=== PATIENT | female | born 1980 | race Two or more races ===

== ENCOUNTER 2025-06-21 17:33 | Emergency (ER) | payer MEDICAID, SELFPAY ==
[2025-06-21 17:42] VITALS: BP 115/87; PULSE 90; RESP 17; TEMP 37.1; O2SAT 97; BMI 36.7
--- NOTE | 2025-06-21 17:47 | XR_ITS ---
Examination: CT abdomen and pelvis without contrast. Coronal 3-D reconstructions. Sagittal 2-D reconstructions. Date and time of exam:June 21, 2025 1913 hrs. Indications: Onset right-sided flank pain today CTDI: vol (mGy): 13.2 DLP: (mGycm): 7 37 Technique: Axial images of the abdomen have been obtained, 3 mm slice thickness Intravenous contrast material has not been administered. Low dose protocols were performed. One or more of the following dose reduction techniques were used; automated exposure control, adjustment of the mA and/or KV according to patient size, use of iterative reconstruction technique. Findings: No focal liver or splenic lesions Absent gallbladder No pancreatic or adrenal mass Absent left kidney, hypertrophied right kidney, 1 mm calculus lower pole right kidney No hydronephrosis or ureteral calculi. 10 mm fat-containing umbilical hernia. Normal appendix No bowel obstruction No diverticulitis No pelvic mass No bladder mass or bladder calculi Impression: Absent left kidney Hypertrophy right kidney, 1 mm nonobstructing calculus lower pole right kidney Normal appendix No bladder mass or bladder calculi
--- NOTE | 2025-06-21 17:47 | PD.EDRME ---
Rapid Medical Screening Exam RME Arrival date/time: 06/21/25 17:33 44-year-old female with no known medical history presents to the emergency room with a chief complaint of right sided flank pain and dysuria x 3 days I have greeted and performed a focused initial assessment of this patient. A comprehensive ED assessment and evaluation of the patient, analysis of all test results, and completion of the medical decision making process will be conducted by additional ED providers. Chief Complaint: Back Pain/Injury Vital signs: Vital Signs Temperature 98.8 F 06/21/25 17:42 Pulse Rate 90 06/21/25 17:42 Respiratory Rate 17 06/21/25 17:42 Blood Pressure 115/87 H 06/21/25 17:42 Pulse Oximetry (%) 97 06/21/25 17:42 Oxygen Delivery Method Room Air 06/21/25 17:42 Vital signs reviewed by provider: Yes
[2025-06-21] MEDS: ACETAMINOPHEN 500 MG TABLET 1000 MG PO (17:56)
[2025-06-21 18:03] LABS: Basophils # (Auto) 0.1 Thou/mm3 (0.0-0.2); Basophils % (Auto) 1 % (0-2.5); Eosinophils # (Auto) 0.1 Thou/mm3 (0.0-0.5); Eosinophils % (Auto) 1 % (0-10); Hematocrit 37.9 % (36.0-46.0); Hemoglobin 12.3 g/dL (12.0-16.0); Immature Granulocytes Auto 0.04 Thou/mm3 (0.00-0.00); Lymphocytes # (Auto) 2.6 Thou/mm3 (1.0-4.8); Lymphocytes % (Auto) 26 % (10-50); Mean Corpuscular HGB Conc 32.5 g/dl (31.0-37.0); Mean Corpuscular Hemoglobin 26.8 pg (25.0-35.0); Mean Corpuscular Volume 83 fL (80-100); Monocytes # (Auto) 0.5 Thou/mm3 (0.0-0.8); Monocytes % (Auto) 5 % (0-12); Neutrophils # (Auto) 6.8 Thou/mm3 (1.8-7.7); Neutrophils % (Auto) 67 % (37-80); Nucleated Red Blood Cell # 0.00 Thou/mm3 (0.00-0.00); Nucleated Red Blood Cell % 0 /100 WBC (0); Platelet Count 476 Thou/mm3 (140-440); RDW Standard Deviation 40.7 fL (36.4-46.3); Red Blood Count 4.59 Miln/mm3 (4.00-5.20); White Blood Count 10.1 Thou/mm3 (3.6-11.0)
[2025-06-21 18:19] LABS: Alanine Aminotransferase 19 U/L (10-49); Albumin, Serum 4.5 gm/dL (3.5-5.0); Albumin/Globulin Ratio 1.7 (1.2-2.2); Alkaline Phosphatase 83 U/L (46-116); Anion Gap 9 (7-16); Aspartate Amino Transferase 21 U/L (0-34); BUN/Creatinine Ratio 14 Ratio (12-20); Bilirubin,Total 0.3 mg/dL (0.3-1.2); Blood Urea Nitrogen 11 mg/dL (9-23); Calcium 10.1 mg/dL (8.3-10.6); Calcium (Corrected) 10.1 mg/dL (8.5-10.1); Carbon Dioxide 27.1 mMol/L (20.0-31.0); Chloride 104 mMol/L (98-107); Creatinine (Component) 0.8 mg/dL (0.6-1.3); Estimated Creatinine Clearance 99.4 mL/min (>60); Globulin 2.6 gm/dL (2.3-3.5); Glucose 124 mg/dL (74-106); Osmolality,Calculated 279 (275-295); Potassium 4.0 mMol/L (3.4-5.1); Sodium 140 mMol/L (136-145); Total Protein 7.1 gm/dL (5.7-8.2); eGFR > 60 See Note
--- NOTE | 2025-06-21 18:22 | EDNOTE_ITS ---
ED Back Injury Pain RME/HPI General Chief Complaint: Back Pain/Injury Stated Complaint: R SHOULDER AND R FLANK PAIN Time Seen by Provider: 06/21/25 18:18 Arrival date/time: 06/21/25 17:33 RME / HPI RME / HPI Narrative: 06/21/25 17:33 44-year-old female with no known medical history presents to the emergency room with a chief complaint of right sided flank pain and dysuria x 3 days I have greeted and performed a focused initial assessment of this patient. A comprehensive ED assessment and evaluation of the patient, analysis of all test results, and completion of the medical decision making process will be conducted by additional ED providers. ------- See [facility] for Dr. Johnson's HPI documentation. Related Data Home Medications ?Medication ?Instructions ?Recorded ?Confirmed sucralfate 1 gram tablet 1 g PO BID 07/07/19 05/05/20 Previous Rx's ?Medication ?Instructions ?Recorded phenazopyridine 95 mg tablet (Azo 95 mg PO TID PRN antwon n 6 doses #14 05/05/20 Urinary Pain Relief) tabs acetaminophen 500 mg tablet 1,000 mg (2 x 500 mg) PO Q ID PRN 02/19/21 (Tylenol Extra Strength) fever or pain #30 tabs meclizine 25 mg tablet 25 mg PO QDAY PRN motion sic kness 04/22/21 #7 tabs ofloxacin 0.3 % ear drops 10 drp otic (ear) BID #5 mL 04/22/21 meclizine 25 mg tablet 25 mg PO BID PRN dizziness # 14 tabs 08/13/22 tramadol 50 mg tablet 50 mg PO TID PRN pain #20 ta bs 12/07/22 hydrocodone 5 mg-acetaminophen 325 1 tab PO Q8H PRN pa in #7 tabs 05/17/23 mg tablet tamsulosin 0.4 mg capsule 0.4 mg PO QDAY #7 caps 05/17 hydrocodone 5 mg-acetaminophen 325 1 tab PO Q8H PRN pa in #7 tabs 04/06/24 mg tablet baclofen 10 mg tablet 10 mg PO BID #20 tabs ondansetron 4 mg disintegrating 4 mg PO Q8H PRN nausea and 06/10/24 tablet vomiting #10 tabs acetaminophen 300 mg-codeine 30 mg 2 tab PO Q8H PRN pa in #20 tabs 06/21/25 tablet ondansetron 4 mg disintegrating 4 mg PO TID PRN nausea and 06/21/25 tablet vomiting 30 days #10 tabs Allergies Allergy/AdvReac Type Severity Reaction Status Date / Time Gadolinium-Containing Allergy Severe Rash Verified 06/21/25 17:36 Contrast Medi ibuprofen (From Motrin) Allergy Severe Rash Verified 06/21/25 17:36 Iodinated Contrast Media Allergy Severe Rash Verified 06/21/25 17:36 Review of Systems Review of Systems Systems Reviewed: All systems reviewed, normal except as documented Past Medical History Past Medical History CARDIAC: Negative Congestive Heart Failure RESPIRATORY: Negative Chronic Obstructive Pulmonary Disease (COPD) GASTROINTESTINAL: Positive Gall Bladder Disease and Gastroesophageal Reflux Disease GENITOURINARY: Positive Genitourinary Disorders (one kidney) and Kidney Stones; Negative Renal Disease ENDOCRINE: Negative Diabetes Mellitus Type 1 or Diabetes Mellitus Type 2 Surgical History SURGICAL: Positive Nephrectomy and Section Social History SMOKING STATUS: Never smoker ED Exam Narrative Physical exam: See [facility] for Dr. Johnson's physical exam documentation. Course Quality Measures none Orders Category Date Time Status Straight [In and Out Catheter] X1 Care 06/21/25 18:28 Active sling [Splint / Immobilizer] STAT Care 06/21/25 21:[address] abdomen pelvis wo con Stat Exams 06/21/25 17:47 Completed XR shoulder RT min 2V Stat Exams 06/21/25 18:26 Completed CBC Stat Lab 06/21/25 17:55 Completed CMP [Comprehensive Metabolic Panel] Stat Lab 06/21/25 17:55 Completed HCG,Qualitative Serum Stat Lab 06/21/25 17:55 Completed Magnesium Stat Lab 06/21/25 17:55 Completed UA, C/S IF [Urinalysis, C/S if Indicated] Stat Lab 06/21/25 19:31 Completed Acetaminophen Tab [Tylenol ES Tab] Med 06/21/25 17:47 Discontinued 1,000 mg PO X1 ONE traMADol HCL [Ultram] Med 06/21/25 21:08 Discontinued 100 mg PO X1 ONE Vital Signs Vital signs: Vital Signs Temperature 98.8 F 06/21/25 17:42 Pulse Rate 90 06/21/25 17:42 Respiratory Rate 17 06/21/25 17:42 Blood Pressure 115/87 H 06/21/25 17:42 Pulse Oximetry (%) 97 06/21/25 17:42 Oxygen Delivery Method Room Air 06/21/25 17:42 Back Pain / Injury MDM Narrative MDM Narrative:: This section includes all my notes and documentations, including HPI, PE, and ED course. Gume Johnson MD HPI: 44yo female with history of left nephrectomy here with right flank and right shoulder pain for several days. With nausea. No other complaints reported. ROS: All negative except as documented in HPI. Physical Exam: General: Alert and oriented. No acute distress when remaining still. Eyes: Conjunctivae and lids clear. ENT: No nasal congestion. Neck: Supple. Heart: RRR. Lungs: No respiratory distress. Good air movement. No rhonchi, wheezing, rales. Abdomen: Soft and nontender. Normal bowel sounds. No distension. No rebound or guarding. Back: No CVA tenderness. Skin: Warm and dry. Neuro: Alert and oriented X 3. Right shoulder: Equivocal tenderness. Slightly limited range of motion due to pain. I reviewed all diagnostic test results. My interpretation of the right shoulder x-ray is tendinitis. My review of the CT abdomen pelvis report is NAD. Blood tests and urine tests are unremarkable. At this point, diagnoses include: Right shoulder tendinitis Abdominal wall pain Treatment here from me included: Tramadol Recommended supportive care. Based on my best medical judgment, made decision no further evaluation or treatment indicated at this time. Patient understands and agrees to the discharge instructions customized and printed, see below. Discharge Instructions from Dr. Johnson printed for you: 1. After extensive evaluation, there is no emergency. 2. Your diagnoses include right shoulder tendinitis and abdominal wall pain. See attached handouts. 3. Wear right arm sling for 5 days then as needed. 4. Apply ice or heat if helpful. 5. Tylenol with codeine for severe pain. 6. See a private doctor outside the ER on 06/24/2025 for recheck and further care. Ask to review all test results and official radiology reports, to make sure you receive all necessary follow-ups and monitoring. Ask for help with more care and tests not available here in the ER. Including right shoulder MRI, to make sure there is no condition needing surgery. To make sure there is no serious intra-abdominal condition, ask for help with more investigation not available here in the ER. Such as EGD or scoping the stomach, colonoscopy or scoping the colon, and referral to see database tester. 7. Seek immediate medical care with worsening or with any concerns. Gume Johnson MD Patient data External records reviewed:: [facility] previous records (Per chart review, patient was seen here on 06/10/24 for UTI.) Clinical information provided by:: patient Social determinants that could affect healthcare access:: none Patient has the following chronic illnesses:: left nephrectomy How is presenting disease/condition affected by chronic disease/condition?: uneffected by Evaluation data The following diagnostics were reviewed and interpreted by me:: lab results and radiology exam(s) Lab and/or radiology exams considered but not ordered:: none Interpretation Summary: I reviewed all diagnostic test results. My interpretation of the right shoulder x-ray is tendinitis. My review of the CT abdomen pelvis report is NAD. Blood tests and urine tests are unremarkable. Medications / Prescriptions Medications or Prescriptions considered but not ordered:: none Medication administrations:: Medication Administration History Discontinued Medications Acetaminophen (Acetaminophen 500 Mg Tablet) 1,000 mg PO X1 ONE Stop: 06/21/25 17:48 Last Admin: 06/21/25 17:56 Dose: 1,000 mg Documented By: OA Tramadol HCl (Tramadol Hcl 50 Mg Tablet) 100 mg PO X1 ONE Stop: 06/21/25 21:09 Tramadol Consultations Consultation(s) initiated? (list below): No Diagnosis Differential diagnosis back pain/injury: renal colic, pyelonephritis and other (UTI, muscle strain, musculoskeletal pain) Most likely diagnosis given after review of the tests above:: Right shoulder tendinitis, Abdominal wall pain Admission Indicated Admission indicated?: not indicated Explain why admission is indicated or not indicated:: With no condition needing emergent intervention, there was no indication for admission. Admission Request Was there a request for admission?: No Disposition Plan Disposition Plan: Discharge Discharge Attestation Discharge Attestation: The patient and all family members were given an opportunity to ask questions and understood the discharge instructions. Discharge instructions specifically effects, indications for sooner follow up or return to the emergency department, and the expected course of current diagnosis. Patient condition: Stable Discharge Plan Plan Patient Disposition: HOME (Self Care) Prescriptions/Referrals Prescriptions/Med Rec: New acetaminophen-codeine 300-30 mg tablet 2 tab PO Q8H MDD 6 PRN (Reason: pain) Qty: 20 0RF ondansetron 4 mg tablet,disintegrating 4 mg PO TID PRN (Reason: nausea and vomiting) 30 Days Qty: 10 0RF No Action phenazopyridine [Azo Urinary Pain Relief] 95 mg tablet 95 mg PO TID PRN (Reason: pain) Qty: 14 0RF sucralfate 1 gram Tablet 1 g PO BID acetaminophen [Tylenol Extra Strength] 500 mg tablet 1,000 mg PO QID PRN (Reason: fever or pain) Qty: 30 0RF meclizine 25 mg tablet 25 mg PO QDAY PRN (Reason: motion sickness) Qty: 7 0RF ofloxacin 0.3 % drops 10 drp otic (ear) BID Qty: 5 0RF tramadol 50 mg tablet 50 mg PO TID PRN (Reason: pain) Qty: 20 0RF hydrocodone-acetaminophen 5-325 mg tablet 1 tab PO Q8H MDD 3 PRN (Reason: pain) Qty: 7 0RF ondansetron 4 mg tablet,disintegrating 4 mg PO Q8H PRN (Reason: nausea and vomiting) Qty: 10 0RF baclofen 10 mg tablet 10 mg PO BID Qty: 20 0RF meclizine 25 mg tablet 25 mg PO BID PRN (Reason: dizziness) Qty: 14 0RF hydrocodone-acetaminophen 5-325 mg tablet 1 tab PO Q8H MDD 3 tabs PRN (Reason: pain) Qty: 7 0RF tamsulosin 0.4 mg capsule 0.4 mg PO QDAY Qty: 7 0RF Referrals: Kalen Doll MD [Primary Care Provider, Family Practice] - In 1 week Problem List Clinical Impression: Right shoulder tendinitis, Abdominal wall pain Patient/Caregiver Discharge Instructions Discharge Activity: activity as tolerated Education Materials: ED Muscle Strain, Abdomen, ED Tendonitis Additional Instructions: Discharge Instructions from Dr. Johnson printed for you: 1. After extensive evaluation, there is no emergency. 2. Your diagnoses include right shoulder tendinitis and abdominal wall pain. See attached handouts. 3. Wear right arm sling for 5 days then as needed. 4. Apply ice or heat if helpful. 5. Tylenol with codeine for severe pain. 6. See a private doctor outside the ER on 06/24/2025 for recheck and further care. Ask to review all test results and official radiology reports, to make sure you receive all necessary follow-ups and monitoring. Ask for help with more care and tests not available here in the ER. Including right shoulder MRI, to make sure there is no condition needing surgery. To make sure there is no serious intra-abdominal condition, ask for help with more investigation not available here in the ER. Such as EGD or scoping the stomach, colonoscopy or scoping the colon, and referral to see database tester. 7. Seek immediate medical care with worsening or with any concerns. Instrucciones de josé miguel del Dr. Johnson impresas para usted: 1. Tras eliana evaluaci?n exhaustiva, no se trata de eliana emergencia. 2. Ayah diagn?sticos incluyen tendinitis del hombro derecho y dolor en la pared abdominal. Consulte los folletos adjuntos. 3. Use un cabestrillo en el brazo derecho buffy 5 d?as y luego seg?n sea necesario. 4. Aplique hielo o calor si le resulta ?til. 5. Tylenol con code?na para el dolor intenso. 6. Consulte con un m?dico privado fuera de urgencias el 24/06/2025 para eliana revisi?n y atenci?n adicional. Solicite la revisi?n de todos los resultados de las pruebas y los informes radiol?gicos oficiales para asegurarse de recibir todos los seguimientos y la monitorizaci?n necesarios. Solicite ayuda con m?s atenci?n y pruebas que no est?n disponibles en urgencias. Incluyendo eliana resonancia magn?osei del hombro derecho, para asegurarse de que no haya eliana afecci?n que requiera cirug?a. Para asegurarse de que no haya eliana afecci?n intraabdominal grave, solicite ayuda con m?s estudios que no est?n disponibles en urgencias. [place] EGD o endoscopia g?strica, colonoscopia o endoscopia de colon, y derivaci?n a un gastroenter?logo. 7. Busque atenci?n m?dica inmediata si presenta empeoramiento o cualquier inquietud. Print Language: Malay Stand Alone Forms: Dorothy Award Info., Patient Portal Info Letter
--- NOTE | 2025-06-21 18:26 | XR_ITS ---
Examination: Shoulder,right, 3 views Technique: Shoulder AP internal rotation, AP external rotation, Y view shoulder, 3 views Exam date and time :June 11, 2025, 194 hrs. Indications: Onset shoulder pain today. Findings: Significant right shoulder calcific tendinitis. No shoulder fracture or dislocation. No foreign body Impression: Significant right shoulder calcific tendinitis
[2025-06-21 18:40] LABS: HCG,Qualitative Serum Negative
[2025-06-21 18:45] LABS: Magnesium 2.0 mg/dL (1.6-2.6)
[2025-06-21 20:01] LABS: Collection Type, Urine Clean Catch
[2025-06-21 20:09] LABS: Bilirubin,Urine Negative (Negative); Blood,Urine Trace (Negative); Clarity,Urine Clear (Clear/Hazy); Color,Urine Colorless (Lt Yel-Yel); Culture Indicated,Urine Not Indicated; Glucose, Urine Negative (Negative); Ketones,Urine Negative (Negative); Leukocyte Esterase,Urine Negative (Negative); Nitrite,Urine Negative (Negative); PH,Urine 6.5 (5.0-7.0); Protein,Urine Negative (Neg - Trace); RBC,Urine 1 /hpf (0-3); Specific Gravity,Urine 1.009 (1.001-1.035); Squamous Epithelial Cell,Urine 3 /hpf (0-5); Urobilinogen,Urine Negative mg/dL (0.0-1.0); WBC,Urine < 1 /hpf (0-5)
[2025-06-21 21:19] VITALS: BP 145/96; PULSE 81; RESP 17; TEMP 36.7; O2SAT 98
== END 2025-06-21 21:28 | disposition home or self-care (01) ==
PROVIDERS: Nurse Practitioner Family; Emergency Provider Emergency Medicine; PCP Family Medicine
DX: M75.31 Calcific tendinitis of right shoulder (principal); R10.9 Unspecified abdominal pain
CPT/HCPCS: 36415; 73030; 74176; 80053; 81001; 81025; 83735; 84703; 85025; 87086; 99284; A9270